=== PATIENT | female | born 1960 | race Caucasian/White ===

== ENCOUNTER 2017-10-18 12:13 | Emergency (ER) | payer MEDICARE, OTHER ==
[~2017-10-18] VITALS: Ht 170.2 cm; Wt 113.4 kg
[2017-10-18] MEDS ORDERED: IV NS 0.9% 1,000 ML BAG IV ONE (12:30)
[2017-10-18] MEDS ORDERED: KETOROLAC TROMETHAMINE INJ 30 MG/ML VIAL IV ONE (12:30)
[2017-10-18] MEDS ORDERED: HYDROMORPHONE INJ 2 MG/ML DISP.SYRIN IV ONE (12:30)
[2017-10-18] MEDS ORDERED: KETOROLAC TROMETHAMINE INJ 30 MG/ML VIAL ONE (12:39)
[2017-10-18] MEDS ORDERED: HYDROMORPHONE 1 MG/1 ML DISP.SYRIN ONE (12:40)
--- NOTE | 2017-10-18 12:45 | NUR ---
BIB RA C/O L FLANK PAIN WITH DYSURIA X 24 HOURS. SEEN BY PA FOR EVAL. DENIES FEVER. C/O NAUSEA. VSS. SAFETY AND COMFORT MEASURES PROVIDED. WILL MONITOR.
[2017-10-18] MEDS ORDERED: ONDANSETRON HCL/PF 4 MG/2 ML VIAL ONE (12:54)
[2017-10-18 12:57] LABS: BASOPHILS # (AUTO) 0.2 /CMM (0.0-0.2); BASOPHILS % (AUTO) 2.3 % (0.0-2.0); EOSINOPHILS # (AUTO) 0.1 /CMM (0.0-0.7); EOSINOPHILS % (AUTO) 1.5 % (0.0-6.0); HEMATOCRIT 39 % (33-45); HEMOGLOBIN 13.1 g/dL (11.5-14.8); LYMPHOCYTES # (AUTO) 2.2 /CMM (0.8-4.8); MEAN CORPUSCULAR HEMOGLOBIN 28 PG (26.0-33.0); MEAN CORPUSCULAR HGB CONC 34 g/dl (31.0-36.0); MEAN CORPUSCULAR VOLUME 84 fL (82-100); MONOCYTES # (AUTO) 0.4 /CMM (0.1-1.30); MONOCYTES % (AUTO) 5.6 % (2.0-12.0); NEUTROPHILS # (AUTO) 4.9 /CMM (1.8-8.9); NEUTROPHILS % (AUTO) 62.6 % (43.0-81.0); PLATELET COUNT (AUTO) 343 /CMM (150-450); RDW COEFFICIENT OF VARIATION 13.9 (11.5-15.0); RED BLOOD CELL COUNT(AUTO) 4.66 MIL/uL (4.0-5.2); WHITE BLOOD COUNT (AUTO) 7.8 K/uL (4.3-11.0)
--- NOTE | 2017-10-18 13:00 | NUR ---
IV ACCESS STARTED. BLOOD DRAWN FOR LABS. MEDICATED ORDERED.
[2017-10-18] MEDS ORDERED: ONDANSETRON HCL/PF 4 MG/2 ML VIAL IV ONE (13:30)
--- NOTE | 2017-10-18 13:30 | NUR ---
PT IS UNABLE TO GIVE URINE SAMPLE AT THIS TIME.
[2017-10-18 14:13] LABS: CALCIUM, SERUM 9.1 mg/dL (8.5-10.1); CREATININE 0.8 mg/dL (0.6-1.3); POTASSIUM 4.2 mmol/L (3.5-5.1)
--- NOTE | 2017-10-18 14:15 | NUR ---
URINE SAMPLE OBTAINED, SENT.
[2017-10-18 14:19] LABS: ALBUMIN 3.6 g/dL (3.4-5.0); BILIRUBIN,DIRECT 0.1 mg/dL (0.0-0.2); BILIRUBIN,TOTAL 0.3 mg/dL (0.2-1.0); TOTAL PROTEIN, SERUM 7.1 g/dL (6.4-8.2)
[2017-10-18 14:37] LABS: APPEARANCE,URINE Clear (CLEAR); BILIRUBIN,URINE Negative (NEGATIVE); BLOOD, URINE Small Ery/uL (NEGATIVE); COLOR,URINE Yellow (YELLOW); KETONES,URINE Negative (NEGATIVE); LEUKOCYTE ESTERASE ,URINE Negative (NEGATIVE); NITRITE, URINE Negative (NEGATIVE); PROTEIN,URINE 30 mg/dl (NEGATIVE); UGLUCOSE Negative (NEGATIVE); UROBILINOGEN,URINE 0.2 EU/dL (0.2)
[2017-10-18 14:44] LABS: BACTERIA,URINE Few /HPF (None Seen); SQUAMOUS EPITHELIAL CELL,UR Moderate /HPF (None Seen)
--- NOTE | 2017-10-18 16:00 | NUR ---
IV removed. Catheter intact and site benign. Pressure and 4x4 applied to site. No bleeding noted.
[2017-10-18 16:05] VITALS: BP 141/79
--- NOTE | 2017-10-18 16:05 | NUR ---
Patient discharged to home in stable condition. Written and verbal after care instructions given. Patient verbalizes understanding of instruction.
== END 2017-10-18 16:07 | disposition home or self-care (01) ==
LOC: ER 12:20
DX: N13.2 Hydronephrosis with renal and ureteral calculous obstruction (principal); R51 Headache; R11.2 Nausea with vomiting, unspecified; D25.9 Leiomyoma of uterus, unspecified; K80.20 Calculus of gallbladder without cholecystitis without obstruction; K85.90 Acute pancreatitis without necrosis or infection, unspecified; Z90.49 Acquired absence of other specified parts of digestive tract; Z90.710 Acquired absence of both cervix and uterus
CPT/HCPCS: 36415; 74176; 80048; 80076; 81001; 83690; 85025; 87077; 87086; 87186; 96361; 96374; 96375; 99285; A4606; J1170; J1885; J2405; 81000-TC; Z7610

== ENCOUNTER 2018-03-21 18:48 | Emergency (ER) | payer OTHER ==
[~2018-03-21] VITALS: Ht 162.6 cm; Wt 89.8 kg
[2018-03-21 18:59] VITALS: BP 124/71
--- NOTE | 2018-03-21 19:21 | NUR ---
RECEIVED REPORT FOM SARAH GARCIA FOR ERIN.
[2018-03-21] MEDS ORDERED: HYDROCODONE/APAP 5/325MG 1 EACH TABLET ONE (19:38)
[2018-03-21] MEDS ORDERED: HYDROCODONE/APAP 5/325MG 1 EACH TABLET PO ONE (20:00)
== END 2018-03-21 20:56 | disposition home or self-care (01) ==
LOC: ER 18:55
DX: M54.41 Lumbago with sciatica, right side (principal); R51 Headache; Z90.49 Acquired absence of other specified parts of digestive tract; Z90.710 Acquired absence of both cervix and uterus
CPT/HCPCS: 70450; 99284; A4606; Z7610

== ENCOUNTER 2018-11-04 19:03 | Emergency (ER) | payer OTHER ==
[~2018-11-04] VITALS: Ht 162.6 cm; Wt 90.7 kg
[2018-11-04 19:12] VITALS: BP 141/85
[2018-11-04] MEDS ORDERED: methylPREDNISolone SOD SUCC 125 MG/2ML VIAL IM ONE (19:30)
[2018-11-04] MEDS ORDERED: KETOROLAC TROMETHAMINE INJ 60 MG/2 ML VIAL IM ONE ×2 (19:30→20:02)
[2018-11-04] MEDS ORDERED: HYDROCODONE/APAP 5/325MG 1 EACH TABLET PO ONE (19:30)
[2018-11-04] MEDS ORDERED: DIAZEPAM 10 MG TABLET PO ONE (19:30)
[2018-11-04] MEDS ORDERED: DIAZEPAM 5 MG TABLET ONE (20:02)
[2018-11-04] MEDS ORDERED: methylPREDNISolone SOD SUCC 125 MG/2ML VIAL ONE (20:02)
[2018-11-04] MEDS ORDERED: HYDROCODONE/APAP 5/325MG 1 EACH TABLET ONE (20:02)
== END 2018-11-04 20:14 | disposition home or self-care (01) ==
LOC: ER 19:05
DX: M54.41 Lumbago with sciatica, right side (principal); Z90.49 Acquired absence of other specified parts of digestive tract; Z90.710 Acquired absence of both cervix and uterus; W01.0XXA Fall on same level from slipping, tripping and stumbling without subsequent striking against object, initial encounter; Y93.89 Activity, other specified; Y92.89 Other specified places as the place of occurrence of the external cause; Y99.8 Other external cause status
CPT/HCPCS: 96372 ×2; 99283; A4606; J1885; J2930

== ENCOUNTER 2018-12-27 23:28 | Emergency (ER) | payer MEDICARE, MEDICAID ==
[~2018-12-27] VITALS: Ht 162.6 cm; Wt 90.3 kg
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
[2018-12-28] MEDS ORDERED: methylPREDNISolone SOD SUCC 125 MG/2ML VIAL ONE (00:18)
[2018-12-28] MEDS ORDERED: MORPHINE SULFATE INJ 2 MG/ML DISP.SYRIN ONE (00:18)
[2018-12-28] MEDS ORDERED: LORAZEPAM INJ 2 MG/ML VIAL ONE (00:21)
[2018-12-28] MEDS ORDERED: LORAZEPAM INJ 2 MG/ML VIAL IM ONE (00:30)
[2018-12-28] MEDS ORDERED: MORPHINE SULFATE INJ 2 MG/ML DISP.SYRIN SQ ONE (00:30)
[2018-12-28] MEDS ORDERED: DIAZEPAM 5 MG/ML 2 ML DISP.SYRIN IM ONE (00:30)
[2018-12-28] MEDS ORDERED: methylPREDNISolone SOD SUCC 125 MG/2ML VIAL IM ONE (00:30)
--- NOTE | 2018-12-28 00:39 | NUR ---
Patient discharged to home in stable condition. Written and verbal after care instructions given. Patient verbalizes understanding of instruction. ambulatory with a steady gait noted. pt aaox4 no acute distress noted, resp even and unlabored. advice pt not to drive or operate any machinery due to pt was given narcotic medicine. pt verbalize understanding.
[2018-12-28 00:41] VITALS: BP 134/75
== END 2018-12-28 00:42 | disposition home or self-care (01) ==
LOC: ER 23:46
DX: S16.1XXA Strain of muscle, fascia and tendon at neck level, initial encounter (principal); M62.838 Other muscle spasm; M54.42 Lumbago with sciatica, left side; R51 Headache; Z90.49 Acquired absence of other specified parts of digestive tract; Z90.710 Acquired absence of both cervix and uterus; V49.49XA Driver injured in collision with other motor vehicles in traffic accident, initial encounter; Y93.89 Activity, other specified; Y92.410 Unspecified street and highway as the place of occurrence of the external cause; Y99.8 Other external cause status
CPT/HCPCS: 96372 ×3; 99283; J2060; J2270; J2930

== ENCOUNTER 2019-02-17 05:04 | Emergency (ER) | payer MEDICARE, MEDICAID ==
[~2019-02-17] VITALS: Ht 162.6 cm; Wt 90.7 kg
--- NOTE | 2019-02-17 06:10 | NUR ---
DR VILLEDA IS AT THE BEDSIDE.
[2019-02-17] MEDS ORDERED: KETOROLAC TROMETHAMINE INJ 30 MG/ML VIAL ONE (06:43)
--- NOTE | 2019-02-17 06:48 | NUR ---
ketorolac IM given as ordered to right upper arm ,aspirated, no blood seen, tolerated IM well.
[2019-02-17 06:50] VITALS: BP 137/77
--- NOTE | 2019-02-17 06:50 | NUR ---
Patient discharged to home in stable condition. Written and verbal after care instructions given. Patient verbalizes understanding of instruction AND RX. PT AMBULATED OUT WITH A SLOW STEADY GAIT. PT'S IS DRIVING PT HOME. VSS
[2019-02-17] MEDS ORDERED: KETOROLAC TROMETHAMINE INJ 30 MG/ML VIAL IM ONE (07:00)
== END 2019-02-17 06:50 | disposition home or self-care (01) ==
LOC: ER 05:04
DX: M54.42 Lumbago with sciatica, left side (principal); Z90.49 Acquired absence of other specified parts of digestive tract; Z90.710 Acquired absence of both cervix and uterus
CPT/HCPCS: 96372; 99283; J1885

== ENCOUNTER 2019-05-17 21:00 | Emergency (ER) | payer MEDICARE, MEDICAID ==
[~2019-05-17] VITALS: Ht 162.6 cm; Wt 90.7 kg
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
[2019-05-17] MEDS ORDERED: oxyCODONE/APAP (5/325 MG) 1 UDTAB TABLET ONE (22:21)
[2019-05-17] MEDS ORDERED: oxyCODONE/APAP (5/325 MG) 1 UDTAB TABLET PO ONE (22:30)
--- NOTE | 2019-05-17 22:47 | NUR ---
PT TAKEN TO RADIOLOGY VIA KATHI
--- NOTE | 2019-05-17 23:40 | NUR ---
Patient discharged to home in stable condition. Written and verbal after care instructions given. Patient verbalizes understanding of instruction.
[2019-05-17 23:43] VITALS: BP 121/84
== END 2019-05-17 23:45 | disposition home or self-care (01) ==
LOC: ER 21:09
DX: S09.8XXA Other specified injuries of head, initial encounter (principal); M54.2 Cervicalgia; M25.511 Pain in right shoulder; Z90.49 Acquired absence of other specified parts of digestive tract; Z90.710 Acquired absence of both cervix and uterus; W18.39XA Other fall on same level, initial encounter; Y93.89 Activity, other specified; Y92.89 Other specified places as the place of occurrence of the external cause; Y99.8 Other external cause status
CPT/HCPCS: 70450-TC; 72125-TC; 73030-TC

== ENCOUNTER 2019-12-24 08:52 | Emergency (ER) | payer MEDICARE, OTHER ==
[~2019-12-24] VITALS: Ht 162.6 cm; Wt 109.3 kg
[2019-12-24 08:59] VITALS: BP 149/92
--- NOTE | 2019-12-24 09:11 | NUR ---
Patient awake alert non distress
[2019-12-24] MEDS ORDERED: KETOROLAC TROMETHAMINE INJ 60 MG/2 ML VIAL IM ONE ×2 (10:00→10:02)
[2019-12-24] MEDS ORDERED: CEFTRIAXONE 1 G VIAL IM ONE (10:00)
[2019-12-24] MEDS ORDERED: CEFTRIAXONE 1 G VIAL ONE (10:02)
[2019-12-24] MEDS ORDERED: LIDOCAINE 1%-EPI 1:100,000 20 ML VIAL ONE (10:08)
--- NOTE | 2019-12-24 10:14 | NUR ---
Patient comnplain of body pain ,ear pain ,back pain medicated with Toradol 60 mgs IM to her Left arm deltoid and rocephin left buttock .
--- NOTE | 2019-12-24 10:42 | NUR ---
Dc home instruction givenagrees to see PMD in 2days verbalized understnding
== END 2019-12-24 10:45 | disposition home or self-care (01) ==
LOC: ER 09:10
DX: M54.30 Sciatica, unspecified side (principal); G89.29 Other chronic pain; Z90.49 Acquired absence of other specified parts of digestive tract; Z90.710 Acquired absence of both cervix and uterus
CPT/HCPCS: 96372 ×2; 99284; J0696; J1885; J3490

== ENCOUNTER 2020-01-13 05:45 | Emergency (ER) | payer MEDICARE, MEDICAID ==
[~2020-01-13] VITALS: Ht 162.6 cm; Wt 90.7 kg
[2020-01-13 06:14] VITALS: BP 152/95
== END 2020-01-13 07:09 | disposition home or self-care (01) ==
LOC: ER 05:46
DX: J06.9 Acute upper respiratory infection, unspecified (principal); Z90.49 Acquired absence of other specified parts of digestive tract; Z90.710 Acquired absence of both cervix and uterus

== ENCOUNTER 2020-04-11 11:02 | Emergency (ER) | payer MEDICARE, MEDICAID ==
[~2020-04-11] VITALS: Ht 162.6 cm; Wt 90.7 kg
[2020-04-11] MEDS ORDERED: ONDANSETRON HCL/PF 4 MG/2 ML VIAL ONE (11:37)
[2020-04-11 11:38] LABS: BASOPHILS % (AUTO) 0.4 % (0.0-2.0); EOSINOPHILS % (AUTO) 0.3 % (0.0-6.0); HEMATOCRIT 40 % (33-45); HEMOGLOBIN 13.1 g/dL (11.5-14.8); LYMPHOCYTES # (AUTO) 1.1 /CMM (0.8-4.8); LYMPHOCYTES % (AUTO) 12.9 % (20.0-44.0); MEAN CORPUSCULAR HGB CONC 33 g/dl (31.0-36.0); MEAN CORPUSCULAR VOLUME 86 fL (82-100); MONOCYTES # (AUTO) 0.7 /CMM (0.1-1.30); MONOCYTES % (AUTO) 8.1 % (2.0-12.0); NEUTROPHILS # (AUTO) 6.5 /CMM (1.8-8.9); NEUTROPHILS % (AUTO) 78.3 % (43.0-81.0); PLATELET COUNT (AUTO) 269 /CMM (150-450); RED BLOOD CELL COUNT(AUTO) 4.61 MIL/uL (4.0-5.2); WHITE BLOOD COUNT (AUTO) 8.3 K/uL (4.3-11.0)
[2020-04-11] MEDS: IV NS 0.9% 1,000 ML BAG IV ONE (11:46)
[2020-04-11] MEDS: ONDANSETRON HCL/PF 4 MG/2 ML VIAL IVP ONE (11:47)
[2020-04-11 11:49] LABS: CALCIUM, SERUM 8.7 mg/dL (8.5-10.1); CREATININE 1.1 mg/dL (0.6-1.3); POTASSIUM 3.6 mmol/L (3.5-5.1)
[2020-04-11 11:54] LABS: ALBUMIN 3.7 g/dL (3.4-5.0); BILIRUBIN,DIRECT 0.2 mg/dL (0.0-0.2); BILIRUBIN,TOTAL 0.5 mg/dL (0.2-1.0); TOTAL PROTEIN, SERUM 7.6 g/dL (6.4-8.2)
[2020-04-11] MEDS ORDERED: HYDROMORPHONE 1 MG/1 ML DISP.SYRIN ONE (13:27)
[2020-04-11] MEDS: HYDROMORPHONE INJ 0.5 MG/0.5 ML SYRINGE IV ONE (13:32)
[2020-04-11 13:58] VITALS: BP 153/78
--- NOTE | 2020-04-11 14:00 | NUR ---
States "feeling much better. For discharge Patient discharged to home in stable condition. Written and verbal after care instructions given. Patient verbalizes understanding of instruction.
== END 2020-04-11 14:00 | disposition home or self-care (01) ==
LOC: ER 11:05
DX: A09 Infectious gastroenteritis and colitis, unspecified (principal); R11.2 Nausea with vomiting, unspecified; Z90.49 Acquired absence of other specified parts of digestive tract; Z98.890 Other specified postprocedural states; Z60.2 Problems related to living alone
CPT/HCPCS: 74176; 80048; 80076; 83690; 85025; 96374; 96375; 99284; J1170; J2405; J7030; 36415

== ENCOUNTER 2021-02-23 16:45 | Emergency (ER) | payer MEDICARE, OTHER ==
[~2021-02-23] VITALS: Ht 162.6 cm; Wt 104.3 kg
--- NOTE | 2021-02-23 16:45 | NUR ---
PT BIB SELF C/O ABDOMINAL PAIN AND BLOATING X 4 DAYS, FREQUENT URINATION X 4 DAYS. PT IS AAOX4, NOT IN RESPIRATORY DISTRESS, V/S STABLE, KEPT RESTED AND COMFORTABLE. WILL CONTINUE TO MONITOR.
--- NOTE | 2021-02-23 17:10 | NUR ---
URINE SPECIMEN COLLECTED AND SENT TO LAB.
--- NOTE | 2021-02-23 17:10 | NUR ---
IV LINE ESTABLISHED BLOOD DRAWN AND SENT TO LAB.
--- NOTE | 2021-02-23 17:15 | NUR ---
AT BEDSIDE FOR EVAL.
[2021-02-23] MEDS ORDERED: MORPHINE SULFATE INJ 4 MG/ML DISP.SYRIN ONE (17:24)
[2021-02-23] MEDS ORDERED: MORPHINE SULFATE INJ 2 MG/ML DISP.SYRIN IV ONE (17:30)
[2021-02-23] MEDS ORDERED: IV NS 0.9% 1,000 ML BAG IV ONE (17:30)
[2021-02-23 17:58] LABS: BASOPHILS % (AUTO) 0.5 % (0.0-2.0); EOSINOPHILS % (AUTO) 2.9 % (0.0-6.0); HEMATOCRIT 38 % (33-45); HEMOGLOBIN 12.3 g/dL (11.5-14.8); LYMPHOCYTES # (AUTO) 3.2 /CMM (0.8-4.8); LYMPHOCYTES % (AUTO) 42.8 % (20.0-44.0); MEAN CORPUSCULAR HGB CONC 33 g/dl (31.0-36.0); MEAN CORPUSCULAR VOLUME 88 fL (82-100); MONOCYTES # (AUTO) 0.7 /CMM (0.1-1.30); MONOCYTES % (AUTO) 9.7 % (2.0-12.0); NEUTROPHILS # (AUTO) 3.3 /CMM (1.8-8.9); NEUTROPHILS % (AUTO) 44.1 % (43.0-81.0); PLATELET COUNT (AUTO) 330 /CMM (150-450); RED BLOOD CELL COUNT(AUTO) 4.28 MIL/uL (4.0-5.2); WHITE BLOOD COUNT (AUTO) 7.6 K/uL (4.3-11.0)
[2021-02-23 18:06] LABS: BILIRUBIN,URINE NEGATIVE (NEGATIVE); COLOR,URINE YELLOW (YELLOW); LEUKOCYTE ESTERASE ,URINE NEGATIVE (NEGATIVE); NITRITE, URINE NEGATIVE (NEGATIVE); PH,URINE 6.5 (5.0-8.0); PROTEIN,URINE NEGATIVE (NEGATIVE); UGLUCOSE NEGATIVE (NEGATIVE); UROBILINOGEN,URINE 0.2 EU/dL (0.2)
[2021-02-23 18:10] LABS: CALCIUM, SERUM 9.1 mg/dL (8.5-10.1); CREATININE 0.9 mg/dL (0.6-1.3); POTASSIUM 3.9 mmol/L (3.5-5.1)
[2021-02-23 18:19] LABS: ALBUMIN 3.6 g/dL (3.4-5.0); BILIRUBIN,DIRECT 0.1 mg/dL (0.0-0.2); BILIRUBIN,TOTAL 0.4 mg/dL (0.2-1.0); TOTAL PROTEIN, SERUM 7.5 g/dL (6.4-8.2)
[2021-02-23] MEDS ORDERED: IV NS 0.9% 250 ML IV ONE (18:21)
[2021-02-23] MEDS ORDERED: IOHEXOL-300 100 ML VIAL IV ONE (18:21)
[2021-02-23] MEDS ORDERED: CT SWABBABLE VALVE TRANS SET 1 EA INFUS.SET MC ONE (18:21)
--- NOTE | 2021-02-23 18:28 | NUR ---
PT IS WHEELED TO CT SCAN VIA [facility].
--- NOTE | 2021-02-23 19:23 | NUR ---
TOOK OVER PT CARE. PT IN BED, RESTING COMFORTABLY.VSS.
[2021-02-23] MEDS ORDERED: PANT20TA2 PO (19:41)
[2021-02-23] MEDS ORDERED: DICY20TA11 PO (19:41)
[2021-02-23] MEDS ORDERED: CYCLOBENZAPRINE 10 MG TABLET ONE (19:53)
[2021-02-23] MEDS ORDERED: LIDOCAINE VISCOUS 2% UD 15 ML UDC ONE (19:53)
[2021-02-23] MEDS ORDERED: MAG HYDROX/AL HYDROX/SIMETH 30 ML UDC ONE (19:53)
[2021-02-23] MEDS ORDERED: CYCLOBENZAPRINE 10 MG TABLET PO ONE (20:00)
[2021-02-23] MEDS ORDERED: MAG HYDROX/AL HYDROX/SIMETH 30 ML UDC PO ONE (20:00)
[2021-02-23] MEDS ORDERED: LIDOCAINE VISCOUS 2% UD 15 ML UDC MM ONE (20:00)
[2021-02-23 20:04] VITALS: BP 128/73
--- NOTE | 2021-02-23 20:04 | NUR ---
IV removed. Catheter intact and site benign. Pressure and 4x4 applied to site. No bleeding noted. Patient discharged to home in stable condition. Written and verbal after care instructions given. Patient verbalizes understanding of instruction and RX. Pt ambulated out of ED. VSS.
[2021-02-25] MEDS ORDERED: DICY20TA11 PO ×3 (15:17→15:20)
[2021-02-25] MEDS ORDERED: PANT20TA2 PO ×3 (15:17→15:20)
== END 2021-02-23 20:05 | disposition home or self-care (01) ==
LOC: ER 16:57
DX: R10.30 Lower abdominal pain, unspecified (principal); R14.0 Abdominal distension (gaseous); R35.0 Frequency of micturition; Z90.49 Acquired absence of other specified parts of digestive tract; Z98.890 Other specified postprocedural states; Z60.2 Problems related to living alone; Z79.899 Other long term (current) drug therapy
CPT/HCPCS: 36415; 74177; 80048; 80076; 81003; 83605; 83690; 84703; 85025; 96361; 96374; 99285; J2270; J7030; J7050; Q9967

== ENCOUNTER 2021-08-05 14:29 | Emergency (ER) | payer MEDICARE, OTHER ==
[~2021-08-05] VITALS: Ht 162.6 cm; Wt 86.2 kg
[~2021-08-05 14:29] MED LIST: DICY20TA11 PO; PANT20TA2 PO
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
--- NOTE | 2021-08-05 14:35 | NUR ---
DR GLORIA AT BEDSIDE
--- NOTE | 2021-08-05 14:55 | NUR ---
X RAY AT BEDSIDE
[2021-08-05] MEDS ORDERED: FENTANYL PF 100MCG/2ML AMPUL ONE ×2 (14:57→15:52)
[2021-08-05] MEDS ORDERED: FENTANYL PF 100MCG/2ML AMPUL IM ONE ×2 (15:00→16:00)
[2021-08-05] MEDS ORDERED: KETOROLAC TROMETHAMINE INJ 30 MG/ML VIAL ONE (15:52)
[2021-08-05] MEDS ORDERED: KETOROLAC TROMETHAMINE INJ 30 MG/ML VIAL IM ONE (16:00)
[2021-08-05 16:29] VITALS: BP 127/82
== END 2021-08-05 16:00 | disposition home or self-care (01) ==
LOC: ER 15:15
DX: S89.81XA Other specified injuries of right lower leg, initial encounter (principal); Z90.49 Acquired absence of other specified parts of digestive tract; Z98.890 Other specified postprocedural states; Z60.2 Problems related to living alone; Z79.899 Other long term (current) drug therapy; W01.0XXA Fall on same level from slipping, tripping and stumbling without subsequent striking against object, initial encounter; Y93.89 Activity, other specified; Y92.481 Parking lot as the place of occurrence of the external cause; Y99.8 Other external cause status
CPT/HCPCS: 29505; 73564; 96372 ×2; 99284; J1885; J3010 ×2

== ENCOUNTER 2022-12-08 00:59 | Emergency (ER) | payer MEDICARE, OTHER ==
[~2022-12-08] VITALS: Ht 162.6 cm; Wt 86.2 kg
[2022-12-08 01:59] VITALS: BP 159/70
[2022-12-08] MEDS ORDERED: ALBUTEROL FS 2.5 MG/3 ML VIAL.NEB NEB ONE (02:00)
[2022-12-08] MEDS ORDERED: ALBU18HF2 INH (02:02)
[2022-12-08] MEDS ORDERED: ALBUTEROL FS 2.5 MG/3 ML VIAL.NEB ONE (02:14)
[2022-12-08] MEDS ORDERED: NABU-139 PO (03:27)
[2022-12-08] MEDS ORDERED: KETOROLAC TROMETHAMINE INJ 60 MG/2 ML VIAL IM ONE ×2 (03:30→03:31)
== END 2022-12-08 03:36 | disposition home or self-care (01) ==
LOC: ER 01:01
DX: J40 Bronchitis, not specified as acute or chronic (principal); Z90.49 Acquired absence of other specified parts of digestive tract; Z60.2 Problems related to living alone; Z79.899 Other long term (current) drug therapy
CPT/HCPCS: 99283; 71045; 96372; 94640; J1885

== ENCOUNTER 2023-05-03 22:30 | Inpatient (IN) | payer MEDICARE, OTHER ==
[~2023-05-03] VITALS: Ht 167.6 cm; Wt 108.9 kg
[~2023-05-03 22:30] MED LIST changes: +ALBU18HF2 INH; +NABU-139 PO
[2023-05-03] MEDS ORDERED: IOHEXOL-350 100 ML VIAL IV ONE (22:45)
[2023-05-03] MEDS ORDERED: IV NS 0.9% 250 ML IV ONE (22:45)
[2023-05-03] MEDS ORDERED: CT SWABBABLE VALVE TRANS SET 1 EA INFUS.SET MC ONE (22:45)
[2023-05-03 23:01] LABS: CALCIUM, SERUM 9.8 mg/dL (8.5-10.1); CARBON DIOXIDE 26 mmol/L (21-32); CHLORIDE 104 mmol/L (98-107); CREATININE 0.9 mg/dL (0.6-1.3); GLUCOSE 115 mg/dL (74-106); SODIUM SERUM 142 mmol/L (136-145); UREA NITROGEN, BLOOD 17 mg/dL (7-18)
[2023-05-03 23:15] LABS: INR 0.93 (0.91-1.10); PARTIAL THROMBOPLASTIN TIME 23.2 SEC (24.3-34.3); PROTHROMBIN TIME 9.8 SECS (9.2-11.1)
[2023-05-03 23:17] LABS: BASOPHILS # (AUTO) 0.1 K/uL (0.0-0.2); BASOPHILS % (AUTO) 1.2 % (0.0-2.0); EOSINOPHILS # (AUTO) 0.3 K/uL (0.0-0.7); EOSINOPHILS % (AUTO) 3.1 % (0.0-6.0); HEMATOCRIT 39 % (33-45); HEMOGLOBIN 12.8 g/dL (11.5-14.8); LYMPHOCYTES # (AUTO) 3.5 K/uL (0.8-4.8); LYMPHOCYTES % (AUTO) 41.1 % (20.0-44.0); MEAN CORPUSCULAR HEMOGLOBIN 28 PG (26.0-33.0); MEAN CORPUSCULAR HGB CONC 33 g/dl (31.0-36.0); MEAN CORPUSCULAR VOLUME 85 fL (82-100); MONOCYTES # (AUTO) 0.6 K/uL (0.1-1.30); MONOCYTES % (AUTO) 7.1 % (2.0-12.0); NEUTROPHILS % (AUTO) 47.5 % (43.0-81.0); PLATELET COUNT (AUTO) 348 K/uL (150-450); RED BLOOD CELL COUNT(AUTO) 4.53 MIL/uL (4.0-5.2); RED CELL DISTRIBUTION WIDTH 14.6 % (11.5-15.0); WHITE BLOOD COUNT (AUTO) 8.4 K/uL (4.3-11.0)
[2023-05-04] VITALS (7 sets, daily range): BP systolic 113–137; BP diastolic 50–81; TEMP 97.3–98.1; O2SAT 98–100
[2023-05-04] MEDS: HYDROCODONE/APAP 5/325MG TABLET PO PRN ×4 (03:54→23:02)
[2023-05-04 05:15] LABS: AMPHETAMINE, URINE NEGATIVE (NEGATIVE); BARBITURATE, URINE NEGATIVE (NEGATIVE); BENZODIAZEPINE, URINE NEGATIVE (NEGATIVE); CANNABINOID, URINE NEGATIVE (NEGATIVE); COCCAINE, URINE NEGATIVE (NEGATIVE); PHENCYCLIDINE SCREEN,URINE NEGATIVE (NEGATIVE)
[2023-05-04 05:18] LABS: OPIATE, URINE POSITIVE (NEGATIVE)
[2023-05-04] MEDS: BLOOD SUGAR DIAGNOSTIC 1 EACH STRIP IN SCH ×7 (05:57→21:50)
[2023-05-04 06:06] LABS: CALCIUM, SERUM 9.3 mg/dL (8.5-10.1); CREATININE 0.8 mg/dL (0.6-1.3); POTASSIUM 4.2 mmol/L (3.5-5.1)
[2023-05-04 06:08] LABS: BASOPHILS % (AUTO) 0.5 % (0.0-2.0); EOSINOPHILS # (AUTO) 0.2 K/uL (0.0-0.7); EOSINOPHILS % (AUTO) 3.1 % (0.0-6.0); HEMATOCRIT 37 % (33-45); LYMPHOCYTES # (AUTO) 3.2 K/uL (0.8-4.8); LYMPHOCYTES % (AUTO) 41.9 % (20.0-44.0); MEAN CORPUSCULAR HEMOGLOBIN 28 PG (26.0-33.0); MEAN CORPUSCULAR HGB CONC 33 g/dl (31.0-36.0); MEAN CORPUSCULAR VOLUME 86 fL (82-100); MONOCYTES # (AUTO) 0.5 K/uL (0.1-1.30); MONOCYTES % (AUTO) 7.1 % (2.0-12.0); NEUTROPHILS # (AUTO) 3.6 K/uL (1.8-8.9); NEUTROPHILS % (AUTO) 47.4 % (43.0-81.0); PLATELET COUNT (AUTO) 314 K/uL (150-450); RED BLOOD CELL COUNT(AUTO) 4.26 MIL/uL (4.0-5.2); RED CELL DISTRIBUTION WIDTH 14.3 % (11.5-15.0); WHITE BLOOD COUNT (AUTO) 7.6 K/uL (4.3-11.0)
[2023-05-04 06:23] LABS: THYROID STIMULATING HORMONE 2.263 uIU/mL (0.358-3.74)
[2023-05-04] MEDS ORDERED: HYDR-3980 PO (07:46)
[2023-05-04] MEDS ORDERED: DICL100G34 TP (07:46)
[2023-05-04] MEDS ORDERED: METH750T3 PO (07:46)
[2023-05-04] MEDS ORDERED: ASPIRIN EC 325 MG TABLET.DR PO SCH (09:00)
[2023-05-04] MEDS: LACTULOSE 10 G/15 ML UDC (PYXIS) PO SCH ×2 (16:27→21:36)
[2023-05-04] MEDS: METHOCARBAMOL (750MG) 750 MG TABLET PO SCH (16:27)
[2023-05-04 17:20] LABS: APPEARANCE,URINE CLEAR (CLEAR); BILIRUBIN,URINE NEGATIVE (NEGATIVE); BLOOD, URINE NEGATIVE Ery/uL (NEGATIVE); COLOR,URINE YELLOW (YELLOW); KETONES,URINE NEGATIVE (NEGATIVE); LEUKOCYTE ESTERASE ,URINE NEGATIVE (NEGATIVE); NITRITE, URINE NEGATIVE (NEGATIVE); PROTEIN,URINE NEGATIVE (NEGATIVE); UGLUCOSE NEGATIVE (NEGATIVE); UROBILINOGEN,URINE 0.2 EU/dL (0.2)
[2023-05-04] MEDS: SIMVASTATIN 20 MG TABLET PO SCH (21:36)
[2023-05-05 00:21] VITALS: BP 130/67; TEMP 98; O2SAT 98
[2023-05-05] MEDS: TEMAZEPAM 15 MG CAPSULE PO PRN ×2 (00:21→22:14)
[2023-05-05 04:20] VITALS: BP 129/75; TEMP 98; O2SAT 97
[2023-05-05] MEDS: LACTULOSE 10 G/15 ML UDC (PYXIS) PO SCH ×4 (04:54→21:55)
[2023-05-05] MEDS: BLOOD SUGAR DIAGNOSTIC 1 EACH STRIP IN SCH ×7 (06:00→21:27)
[2023-05-05 07:00] VITALS: BP 143/78; TEMP 98.3; O2SAT 98
[2023-05-05] MEDS: METHOCARBAMOL (750MG) 750 MG TABLET PO SCH ×2 (08:44→16:45)
[2023-05-05] MEDS: ASPIRIN 81 MG TAB.CHEW PO SCH (08:44)
[2023-05-05] MEDS ORDERED: NA PHOS,M-B/NA PHOS,DI-BA 1 EA ENEMA RC PRN (10:00)
[2023-05-05] MEDS: HYDROCODONE/APAP 5/325MG TABLET PO PRN ×2 (13:50→22:15)
[2023-05-05 16:00] VITALS: BP 137/63; TEMP 97.9; O2SAT 100
[2023-05-05 20:00] VITALS: BP 126/59; TEMP 97.4; O2SAT 100
[2023-05-05] MEDS: SIMVASTATIN 20 MG TABLET PO SCH (21:05)
[2023-05-06] MEDS: LACTULOSE 10 G/15 ML UDC (PYXIS) PO SCH ×2 (05:18→09:02)
[2023-05-06] MEDS: BLOOD SUGAR DIAGNOSTIC 1 EACH STRIP IN SCH (06:36)
[2023-05-06 07:00] VITALS: BP 118/56; TEMP 98; O2SAT 99
[2023-05-06] MEDS ORDERED: ASPI-1169 PO (08:27)
[2023-05-06] MEDS ORDERED: ATOR40TA PO (08:27)
[2023-05-06] MEDS: METHOCARBAMOL (750MG) 750 MG TABLET PO SCH (09:02)
[2023-05-06] MEDS: ASPIRIN 81 MG TAB.CHEW PO SCH (09:02)
[2023-05-06] MEDS: HYDROCODONE/APAP 5/325MG TABLET PO PRN (09:09)
== END 2023-05-06 11:10 | disposition home health service (06) | DRG 69 ==
LOC: ER 22:35 → TELE 23:59 → MED 05-05 12:24
PROVIDERS: ADMIT Nurse Practitioner Acute Care; ATTEND Nurse Practitioner Acute Care
DX: G45.9 Transient cerebral ischemic attack, unspecified (principal); M54.32 Sciatica, left side; M54.31 Sciatica, right side; Z90.711 Acquired absence of uterus with remaining cervical stump; Z90.49 Acquired absence of other specified parts of digestive tract; G89.4 Chronic pain syndrome; E66.01 Morbid (severe) obesity due to excess calories; E78.5 Hyperlipidemia, unspecified; R29.702 NIHSS score 2; Z79.51 Long term (current) use of inhaled steroids; Z79.899 Other long term (current) drug therapy; K59.00 Constipation, unspecified; Z68.38 Body mass index [BMI] 38.0-38.9, adult; Z86.73 Personal history of transient ischemic attack (TIA), and cerebral infarction without residual deficits
CPT/HCPCS: 36415; 70450-TC; 70496-TC; 70498-TC; 70551-TC; 71045-TC; 80048-TC; 80061-TC; 82962-TC; 84443-TC; 84484-TC; 85025-TC; 85730-TC; 87086-TC; 92526; 92611-TC; 93307-TC; 93880-TC; 97110-TC; 97116-TC; 97530-TC; G0378; J7050; Q9967

== ENCOUNTER 2024-01-11 10:21 | Emergency (ER) | payer MEDICARE, MEDICAID ==
[~2024-01-11] VITALS: Ht 162.6 cm; Wt 108.9 kg
[~2024-01-11 10:21] MED LIST changes: -ALBU18HF2 INH; +ASPI-1169 PO; +ATOR40TA PO; +DICL100G34 TP; -DICY20TA11 PO; +HYDR-3980 PO; +METH750T3 PO; -NABU-139 PO; -PANT20TA2 PO
[2024-01-11] MEDS ORDERED: MORPHINE SULFATE INJ 4 MG/ML DISP.SYRIN ONE (10:41)
[2024-01-11] MEDS ORDERED: ONDANSETRON HCL/PF 4 MG/2 ML VIAL ONE (10:41)
[2024-01-11 10:52] LABS: BASOPHILS % (AUTO) 0.7 % (0.0-2.0); EOSINOPHILS # (AUTO) 0.1 K/uL (0.0-0.7); EOSINOPHILS % (AUTO) 1.7 % (0.0-6.0); HEMATOCRIT 37 % (33-45); HEMOGLOBIN 12.1 g/dL (11.5-14.8); LYMPHOCYTES # (AUTO) 1.7 K/uL (0.8-4.8); LYMPHOCYTES % (AUTO) 23.1 % (20.0-44.0); MEAN CORPUSCULAR HEMOGLOBIN 27 PG (26.0-33.0); MEAN CORPUSCULAR HGB CONC 33 g/dl (31.0-36.0); MEAN CORPUSCULAR VOLUME 83 fL (82-100); MONOCYTES # (AUTO) 0.4 K/uL (0.1-1.30); MONOCYTES % (AUTO) 6.1 % (2.0-12.0); NEUTROPHILS # (AUTO) 4.9 K/uL (1.8-8.9); NEUTROPHILS % (AUTO) 68.4 % (43.0-81.0); PLATELET COUNT (AUTO) 368 K/uL (150-450); RED BLOOD CELL COUNT(AUTO) 4.45 MIL/uL (4.0-5.2); RED CELL DISTRIBUTION WIDTH 14.6 % (11.5-15.0); WHITE BLOOD COUNT (AUTO) 7.2 K/uL (4.3-11.0)
[2024-01-11] MEDS: IV NS 0.9% 1,000 ML BAG IV ONE (10:53)
[2024-01-11] MEDS: MORPHINE SULFATE INJ 2 MG/ML DISP.SYRIN IV ONE (10:55)
[2024-01-11] MEDS: ONDANSETRON HCL/PF 4 MG/2 ML VIAL IVP ONE (10:56)
[2024-01-11 10:59] LABS: CALCIUM, SERUM 8.8 mg/dL (8.5-10.1); CREATININE 0.8 mg/dL (0.6-1.3); POTASSIUM 3.8 mmol/L (3.5-5.1)
[2024-01-11 11:05] LABS: ALBUMIN 3.9 g/dL (3.4-5.0); BILIRUBIN,DIRECT 0.1 mg/dL (0.0-0.2); BILIRUBIN,TOTAL 0.4 mg/dL (0.2-1.0); TOTAL PROTEIN, SERUM 7.7 g/dL (6.4-8.2)
[2024-01-11] MEDS ORDERED: HYDR-3980 PO (12:02)
[2024-01-11] MEDS ORDERED: ONDA4TAB5 PO (12:02)
[2024-01-11] MEDS ORDERED: [UNRECOGNIZED DRUG - CODE] PO (12:02)
[2024-01-11 13:09] VITALS: BP 128/70; TEMP 98.3; O2SAT 98
== END 2024-01-11 13:11 | disposition home or self-care (01) ==
LOC: ER 10:25
DX: J32.9 Chronic sinusitis, unspecified (principal); K85.90 Acute pancreatitis without necrosis or infection, unspecified; R11.2 Nausea with vomiting, unspecified; Z90.49 Acquired absence of other specified parts of digestive tract; Z60.2 Problems related to living alone; Z79.899 Other long term (current) drug therapy
CPT/HCPCS: 99285; 74176; 96374; 71045; 96361; 96375; 85025; 80048; 83690; 80076; 36415; J2270; J2405; J7030

== ENCOUNTER 2024-03-09 04:31 | Emergency (ER) | payer MEDICARE, MEDICAID ==
[~2024-03-09] VITALS: Ht 162.6 cm; Wt 111.1 kg
[~2024-03-09 04:31] MED LIST changes: +ONDA4TAB5 PO; +[UNRECOGNIZED DRUG - CODE] PO
[2024-03-09] MEDS ORDERED: MINERAL OIL 133 ML (PYXIS) 1 EA ENEMA RC ONE (05:01)
[2024-03-09] MEDS: MINERAL OIL 133 ML (PYXIS) 1 EA ENEMA RC ONE (05:18)
[2024-03-09] MEDS ORDERED: MORPHINE SULFATE INJ 4 MG/ML DISP.SYRIN ONE (06:05)
[2024-03-09] MEDS: MORPHINE SULFATE INJ 2 MG/ML DISP.SYRIN IV ONE (06:11)
[2024-03-09 06:17] LABS: BASOPHILS # (AUTO) 0.1 K/uL (0.0-0.2); BASOPHILS % (AUTO) 1.2 % (0.0-2.0); EOSINOPHILS # (AUTO) 0.2 K/uL (0.0-0.7); EOSINOPHILS % (AUTO) 3.1 % (0.0-6.0); HEMATOCRIT 37 % (33-45); HEMOGLOBIN 12.6 g/dL (11.5-14.8); LYMPHOCYTES # (AUTO) 2.5 K/uL (0.8-4.8); LYMPHOCYTES % (AUTO) 32.3 % (20.0-44.0); MEAN CORPUSCULAR HEMOGLOBIN 29 PG (26.0-33.0); MEAN CORPUSCULAR HGB CONC 34 g/dl (31.0-36.0); MEAN CORPUSCULAR VOLUME 85 fL (82-100); MONOCYTES # (AUTO) 0.6 K/uL (0.1-1.30); MONOCYTES % (AUTO) 7.8 % (2.0-12.0); NEUTROPHILS # (AUTO) 4.4 K/uL (1.8-8.9); NEUTROPHILS % (AUTO) 55.6 % (43.0-81.0); PLATELET COUNT (AUTO) 393 K/uL (150-450); RED BLOOD CELL COUNT(AUTO) 4.39 MIL/uL (4.0-5.2); RED CELL DISTRIBUTION WIDTH 14.5 % (11.5-15.0); WHITE BLOOD COUNT (AUTO) 7.9 K/uL (4.3-11.0)
[2024-03-09 06:22] LABS: CALCIUM, SERUM 9.9 mg/dL (8.5-10.1); POTASSIUM 4.1 mmol/L (3.5-5.1)
[2024-03-09 06:30] LABS: ALBUMIN 3.6 g/dL (3.4-5.0); BILIRUBIN,DIRECT 0.1 mg/dL (0.0-0.2); BILIRUBIN,TOTAL 0.3 mg/dL (0.2-1.0)
[2024-03-09 06:33] LABS: INR 0.97 (0.91-1.10); PROTHROMBIN TIME 10.3 SECS (9.2-11.1)
[2024-03-09] MEDS ORDERED: POLY17PO4 PO (07:46)
[2024-03-09] MEDS ORDERED: GLYC-30 RC (07:46)
[2024-03-09] MEDS ORDERED: LACTULOSE 10 G/15 ML UDC (PYXIS) ONE (07:49)
[2024-03-09] MEDS: LIDOCAINE 5% OINT 35.44 GM TUBE TP STA (08:10)
[2024-03-09] MEDS: LACTULOSE 10 G/15 ML UDC (PYXIS) PO ONE (08:10)
[2024-03-09 08:26] VITALS: BP 141/69; TEMP 98.5; O2SAT 98
== END 2024-03-09 08:26 | disposition home or self-care (01) ==
LOC: ER 04:45
DX: K59.00 Constipation, unspecified (principal); R10.30 Lower abdominal pain, unspecified; Z90.49 Acquired absence of other specified parts of digestive tract; Z90.710 Acquired absence of both cervix and uterus; Z60.2 Problems related to living alone
CPT/HCPCS: 99285; 74176; 96374; 74018; 85025; 80048; 83690; 80076; 36415; 85730; J2270